=== PATIENT | female | born 1980 | race Caucasian/White ===

== ENCOUNTER 2016-12-31 02:42 | Inpatient (IN) | payer OTHER ==
[2016-12-31] MEDS ORDERED: LIDOCAINE 1% (PRES FREE) 30 ML VIAL ONE (19:42)
[2016-12-31] MEDS ORDERED: LACTATED RINGERS 1,000 ML ONE (19:42)
[2016-12-31] MEDS ORDERED: LIDOCAINE Viscous 2% 15 ML UDCUP ONE (19:42)
[2016-12-31] MEDS ORDERED: PUMP TUBING ONE (19:42)
[2016-12-31] MEDS ORDERED: MINERAL OIL 25 ML BOT ONE (19:42)
[2016-12-31] MEDS ORDERED: OXYTOCIN IN LR 500 ML IV ONE (19:42)
[2016-12-31] MEDS ORDERED: IV START KIT ONE (19:42)
[2016-12-31] MEDS ORDERED: OXYTOCIN 10 UNITS/ML VIAL ONE (19:42)
[2016-12-31] MEDS ORDERED: SODIUM CHLORIDE 0.9% FLUSH 20 ML ONE (20:13)
[2016-12-31] MEDS ORDERED: DINOPROSTONE 10 MG SUP VG ONE (20:22)
--- NOTE | 2016-12-31 20:44 | PDOC36 ---
Provider Note Subject: cc: Admission H&P HPI: 36 y.o. year old RINA 12/31/2016, by Last Menstrual Period at 40w0d. Presents for IOL for A1 GDM and at 40 weeks. REVIEW OF SYSTEMS GENERAL: No fever or headache EYES: No double or blurry vision. CARDIOVASCULAR: No chest pain. RESPIRATORY: No severe shortness of breath or cough. GASTROINTESTINAL: No nausea or vomiting or right upper quadrant pain. PSYCHIATRIC: No anxiety or depression. PROBLEMS Patient Active Problem List Diagnosis Date Noted Gastroesophageal reflux in 12/24/2016 GDM (gestational diabetes mellitus) 10/22/2016 06/15/2016 OB HISTORY #: 1, Date: [birth year]16[birth year], Sex: Male, Weight: 3.856 kg (8 lb 8 oz), GA: 41w0d, Delivery: Vaginal, Spontaneous Delivery, Apgar1: None, Apgar5: None, Living: Yes , Comments: IOL for post dates #: 2, Date: 02/06/08, Sex: Female, Weight: 3.685 kg (8 lb 2 oz), GA: 40w0d, Delivery: Vaginal, Spontaneous Delivery, Apgar1: None, Apgar5: None, Living: Yes , Comments: DFOB, IOL for non reassuring FM #: 3, Current PSH Past Surgical History Procedure Laterality Date Hernia repair Bilateral inguinal SOC HX reports that she quit smoking about 9 months ago. Her smoking use included Cigarettes. She started smoking about 7 years ago. She has a 1.25 pack-year smoking history. She does not have any smokeless tobacco history on file. She reports that she uses illicit drugs (Marijuana). She reports that she does not drink alcohol. ALL No Known Allergies MEDICATIONS Current outpatient prescriptions: glucose blood (FREESTYLE LITE) test strip, Dx: O24.419. Check glucose QID, Disp: 200 each, Rfl: 12 Lancets (FREESTYLE) lancets, Dx: O24.419. Check glucose QID, Disp: 200 each, Rfl: 12 multivitamin (ULTRATABS) tablet, Take 1 tablet by mouth daily., Disp : 30 each, Rfl: 11 ranitidine (ZANTAC) 150 MG tablet, Take 1 tablet (150 mg total) by mouth 2 ( two) times a day., Disp: 60 tablet, Rfl: 11 PHYSICAL EXAMINATION VITAL SIGNS: T 98.5 BP 129/81 P 88 Estimated body mass index is 37.90 kg/(m^2) as calculated from the following: Height as of 11/09/16: 1.65 m (5' 4.96"). Weight as of 12/28/16: 103.193 kg (227 lb 8 oz). Total weight gain is 19.278 kg (42 lb 8 oz) FHT: 140's baseline, mod jose, + accels, no decels [place]: intermittent SVE: 2/50/ballotable GENERAL: No distress CARDIOVASCULAR: Regular rate and rhythm, no murmur, JVD or pedal edema. RESPIRATORY: Clear to auscultation bilaterally, respiratory effort is nonlabored at rest. GASTROINTESTINAL: Gravid no fundal tenderness NEUROLOGIC: Deep tendon reflexes are 2+ in the knees. Cranial nerves II-XII are grossly intact. PSYCHIATRIC: Alert and oriented x3, judgement and memory is intact, mood is pleasant. LABS & STUDIES B+ Antibody- Rubella Immune Hep B- HIV- GC/Chlamydia- Trep- Hgb 13.4 GBS neg Dating Based On RINA GA Dif Comments GA Cyc Lut BC Entered By Date Last Menstrual Period on 03/26/16 (Exact Date) 12/31/16 Working Claire Rader, CHENTE 06/09/16 Ultrasound on 06/12/16 01/01/17 -1d Dating scan at , c/w LMP. 11w0d Danielle Lamas MD 06/15/16 Ultrasound on 08/12/16 01/03/17 -3d Anatomy scan at , grossly normal. Posterior placenta, ASSESSMENT 36 y.o. year old RINA 12/31/2016, by Last Menstrual Period at 40w0d with A1 GDM who presents for IOL. PLAN Labor- IOL for GDM. Unfavorable cervical exam. Will start with cervidil tonight. GDM- check BS RH + GBS neg FWB - category I.
[2016-12-31 21:49] VITALS: BMI 38.7
[2016-12-31 22:24] LABS: HEMATOCRIT 36.3 % (37.0-47.0); HEMOGLOBIN 12.2 gm/l (12.0-16.0); MEAN CELL VOLUME 86.2 fl (81.0-99.0); MEAN CORPUSCULAR HGB CONC 33.6 g/dl (33.0-37.0); RED CELL DISTRIBUTION WIDTH 13.2 % (11.5-14.5)
[2017-01-01] MEDS ORDERED: OXYTOCIN IN LR 500 ML IV PRN (08:45)
[2017-01-01] MEDS: LACTATED RINGERS 1,000 ML IV SCH ×5 (09:41→19:00)
[2017-01-01] MEDS ORDERED: EPIDURAL PUMP SET ONE (15:07)
[2017-01-01] MEDS ORDERED: FENTANYL/ROPIVACAINE EPIDURAL 250 ML EP ONE (15:08)
[2017-01-01] MEDS ORDERED: FENTANYL 100 MCG/2 ML VIAL ONE (15:49)
[2017-01-01] MEDS ORDERED: LIDOCAINE 2% (PRES FREE) 5 ML VIAL ONE (15:50)
[2017-01-01] MEDS ORDERED: EPIDURAL PROCEDURE TRAY ONE (15:50)
[2017-01-01] MEDS ORDERED: LACTATED RINGERS 500 ML IV PRN (15:52)
[2017-01-01] MEDS ORDERED: ONDANSETRON 4 MG/2ML 2 ML VIAL IV PRN (15:52)
[2017-01-01] MEDS ORDERED: FENTANYL/ROPIVACAINE EPIDURAL 250 ML EP SCH (15:52)
[2017-01-01] MEDS ORDERED: SODIUM CHLORIDE 0.9% 500 ML IV PRN (15:52)
[2017-01-01] MEDS ORDERED: METOCLOPRAMIDE HCL 5 MG/ML 2ML VIAL IV PRN (15:52)
[2017-01-01] MEDS ORDERED: NALBUPHINE HCL 20 MG/ML AMP IV PRN (15:52)
[2017-01-01] MEDS ORDERED: EPHEDRINE SULFATE 50 MG/ML 1ML VIAL IV PRN (15:52)
[2017-01-01] MEDS ORDERED: DIPHENHYDRAMINE HCL 50 MG/1 ML VIAL IV PRN (15:52)
[2017-01-01] MEDS ORDERED: NALOXONE HCL 0.4 MG/ML VIAL IV PRN (15:52)
[2017-01-01] MEDS ORDERED: ONDANSETRON 4 MG/2ML 2 ML VIAL ONE (16:59)
[2017-01-01] MEDS ORDERED: ONDANSETRON 4 MG/2ML 2 ML VIAL IV ONE (17:03)
--- NOTE | 2017-01-01 17:25 | PDOC36 ---
Provider Note Subject: 36yo @ 40 wks here for IOL for GDM, diet controlled, s/p Cervidil overnight. GBS negative. FHTs reassuring overnight. O: 98.0, 122/74, 77, 18 Gen: comfortable, NAD SVE: 3.5/50/-2 moderate FHT: 130 baseline, moderate variable, +accels, no decels, Cat I [place]: irregular pattern A/P: Taylor's score of 6. FHTs reassuring. Pt is multip. -will start Pitocin now -if not making progress on Pit but head comes down more, might consider AROM -advised Edmundo for pain control -pt is considering epidural when more painful
[2017-01-01] MEDS ORDERED: OXYTOCIN IN LR 500 ML IV ONE (18:03)
[2017-01-01] MEDS ORDERED: BENZOCAINE/MENTHOL 60 APPLIC/BOT TP PRN (18:14)
[2017-01-01] MEDS ORDERED: ACETAMINOPHEN 325 MG TABLET PO PRN (18:14)
[2017-01-01] MEDS ORDERED: SENNOSIDES 8.6 MG TABLET PO PRN (18:14)
[2017-01-01] MEDS ORDERED: HYDROCODONE/ACETAMINOPHEN 5/325MG TABLET PO PRN (18:14)
[2017-01-01] MEDS ORDERED: LANOLIN 50 APPLIC/7G TUBE TP PRN (18:14)
[2017-01-01] MEDS ORDERED: MAGNESIUM HYDROXIDE 30 ML UDCUP PO PRN (18:14)
[2017-01-01] MEDS ORDERED: DOCUSATE SODIUM 100 MG CAPSULE PO PRN (18:14)
--- NOTE | 2017-01-01 18:27 | PCMDEL ---
Delivery Note - Labor 1st stage (hr/min):: 4hrs 5 min 2nd stage (hr/min):: 21 min 3rd stage (hr/min):: 9 min Total (hr/min):: 4hrs 35 min Pushed (hr/min):: 9 min - Delivery Delivery (Date): 01/01/17 Delivery (Time): 17:56 Infant Gender: Female Presentation: Cephalic Position: OA Umbilical Cord: 3 Vessel Delayed Cord Clamping:: < 1-2 min 1 Minute Total: 9 5 Minute Total: 9 Placenta:: complete with large blood clot noted EBL:: 250ml Perineum:: intact Suture:: n/a Anesthesia/Meds:: Cervidil x 1, Pitocin augmentation, Epidural, Pitocin for third stage Length ROM:: 1hr 31 min Comments:: Vigorous female delivered in occiput anterior position over intact perineum. The was placed on mom's chest. The cord was clamped and cut >1 -2 min. Pitocin was given immediately after delivery of the . The placenta delivered complete with a large blood clot noted. There was a 3 vessel cord. There were no lacerations.
[2017-01-01] MEDS: IBUPROFEN 800 MG TABLET PO PRN (20:58)
[2017-01-02] MEDS: IBUPROFEN 800 MG TABLET PO PRN ×3 (06:02→20:07)
[2017-01-02 06:10] LABS: HEMATOCRIT 32.8 % (37.0-47.0); HEMOGLOBIN 11.1 gm/l (12.0-16.0)
--- NOTE | 2017-01-02 13:15 | PDOC44 ---
- Subjective Day: 1 Reports Flatus, Reports Pain Tolerable, Reports , Reports Tolerating Regular Diet, Denies Nausea, Denies Vomiting - Objective Temp Pulse Resp BP Pulse Ox 97.7 F 81 18 127/74 01/02/17 09:10 01/02/17 09:10 01/02/17 09:10 01/02/17 09:10 Lab Results 01/02/17 05:30 Hgb 11.1 L Hct 32.8 L Current Medications Generic Name Dose Route Start Last Admin Trade Name Freq PRN Reason Stop Dose Admin Acetaminophen 325 - 650 mg 01/01/17 18:14 Tylenol PO Q4H PRN Pain (Mild) Acetaminophen/Hydrocodone Bitart 1 - 2 tab 01/01/17 18:14 [place] 5/325 PO Q4H PRN Pain (Moderate) Benzocaine/Menthol 1 applic 01/01/17 18:14 Dermoplast TP PRN PRN Patient Comfort Docusate Sodium 100 mg 01/01/17 18:14 01/02/17 09:35 Colace PO 100 mg DAILY PRN Administration Comfort/CONSTIPATION Emollient Ointment 1 applic 01/01/17 18:14 Rge-N-Pnvxxy TP PRN PRN sore nipples Ibuprofen 800 mg 01/01/17 18:14 01/02/17 06:02 Motrin PO 800 mg Q6H PRN Administration Pain (Mild) Magnesium Hydroxide 30 ml 01/01/17 18:14 Milk Of Magnesia PO BEDTIME PRN Constipation Senna 17.2 mg 01/01/17 18:14 Senokot PO BEDTIME PRN Comfort/CONSTIPATION Sodium Chloride 10 ml 01/01/17 18:14 Normal Saline 10ml Flush IV PRN PRN IV Flush Sodium Chloride 10 ml 01/02/17 01:00 01/02/17 09:14 Normal Saline 10ml Flush IV Not Given Q8HR PRABHU - Physical Exam General: Afebrile, No Acute Distress Psych/Mental Status: Mood/Affect Appropriate, Bonding Well Neurological: Alert, Oriented x 4 Lungs: Clear to Auscultation Bilaterally Cardiovascular: Regular Rate and Rhythm Breast: Nipples Intact Fundus: Firm, Midline Extremities: Full ROM, No Edema, No Tenderness Skin: Normal Color, Warm, Dry, Intact, No Rash - Problems:Assessment/Plan (1) (normal spontaneous vaginal delivery) Status: AcuteAssessment/Plan: PPD 1. IOL at term for GDM. Nl vitals and exam. Doing well. +BF. -routine pp care Disposition: Anticipate DC Home Tomorrow
[2017-01-02 13:26] VITALS: BP 124/85
--- NOTE | 2017-01-02 19:39 | PDOC39B ---
Hospital Course: ADMIT DATE: 12/31/16 DISCHARGE DATE: 01/02/17 ADMISSION DIAGNOSES: Induction of labor for GDM PROCEDURES: Normal spontaneous vaginal delivery HISTORY OF PRESENT ILLNESS/HOSPITAL COURSE: 36 year old G3 T2 L2 at 40 weeks 1 days presented for induction of labor. Cervidil x 1 was placed and she progressed to a normal spontaneous vaginal delivery. Family requested to be discharged on PPD 1. By day of discharge the patient is ambulating, eating, voiding, and passing flatus without difficulty. Pain is controlled and lochia is appropriate. She is . - Physical Exam Vital Signs: Temp Pulse Resp BP Pulse Ox 97.9 F 73 18 124/85 01/02/17 13:15 01/02/17 13:15 01/02/17 13:15 01/02/17 13:15 General: Afebrile, No Acute Distress Neurological: Alert, Oriented x 4 Lungs: Clear to Auscultation Bilaterally Cardiovascular: Regular Rate and Rhythm Fundus: Firm, Midline Extremities: Full ROM, No Edema Skin: Normal Color, Warm, Dry, Intact, No Rash - Discharge Diagnosis (1) (normal spontaneous vaginal delivery) Status: AcuteAssessment/Plan: PPD 1. IOL at term for GDM. Nl vitals and exam. Doing well. +BF Family requested to be discharged today. - Discharge Plan Condition: Good Disposition: Home Instruction Forms: Vaginal Discharge Instructions Prescriptions: Ibuprofen [Motrin] 800 mg PO TID PRN #30 tablet PRN Reason: Pain Follow-Up: Danielle Lamas MD [Primary Care Provider] - In 6 weeks
== END 2017-01-02 20:50 | disposition home or self-care (01) | DRG 775 ==
LOC: EDSTATUS 18:53 → UNDOADMIN 18:55 → FBC 18:55
PROVIDERS: ADMIT Family Medicine; ATTEND Family Medicine
PROC: 3E0P7GC Introduction of Other Therapeutic Substance into Female Reproductive, Via Natural or Artificial Opening (ICD-10-PCS; 2016-12-31)
PROC: 10E0XZZ Delivery of Products of Conception, External Approach (ICD-10-PCS; principal; 2017-01-01)
DX: O24.420 Gestational diabetes mellitus in childbirth, diet controlled (principal); O99.324 Drug use complicating childbirth; O99.62 Diseases of the digestive system complicating childbirth; K21.9 Gastro-esophageal reflux disease without esophagitis; O99.334 Smoking (tobacco) complicating childbirth; F17.210 Nicotine dependence, cigarettes, uncomplicated; F12.10 Cannabis abuse, uncomplicated; Z37.0 Single live birth; Z3A.40 40 weeks gestation of pregnancy